=== PATIENT | male | born 1980 | race Caucasian/White ===

== ENCOUNTER 2016-09-06 01:03 | Emergency (ER) | payer BC ==
[~2016-09-06] VITALS: Ht 177.8 cm; Wt 92.1 kg
[~2016-09-06 01:03] MED LIST: FLEXERIL5 MG PO; OMEPRAZOLE40 M1 PO; VOLTAREN50 MG PO
[2016-09-06] MEDS ORDERED: MEDROL DOSEPAK4 MG PO (02:13)
[2016-09-06] MEDS ORDERED: AMOXICILLIN875 MG PO (02:13)
[2016-09-06 02:23] VITALS: BP 124/84
== END 2016-09-06 02:24 | disposition home or self-care (01) ==
LOC: EME 01:03 → EXP 01:03
DX: J34.89 Other specified disorders of nose and nasal sinuses (principal); Z87.891 Personal history of nicotine dependence
CPT/HCPCS: 99281; 99283